=== PATIENT | male | born 1970 | race Caucasian/White ===

== ENCOUNTER → 2016-09-23 | Outpatient (CLI) | payer OTHER ==
[2016-09-23 13:44] LABS: BASO % 0.5 % (0.0-1.0); EOS # 0.4 10*3/uL (0.0-0.4); EOS % 5.5 % (1.0-4.0); HEMATOCRIT 43.7 % (42.0-52.0); HEMOGLOBIN 15.1 g/dl (14.0-18.0); LYMPH # 1.5 10*3/uL (1.3-4.4); LYMPH % 19.3 % (27.0-41.0); MEAN CELL VOLUME 89.2 fl (80.0-94.0); MEAN CORPUSCULAR HGB 30.8 pg (27.0-31.0); MEAN CORPUSCULAR HGB CONC 34.6 g/dl (33.0-37.0); MEAN PLATELET VOLUME 9.5 fl (9.6-12.3); MONO # 0.5 10*3/uL (0.1-1.0); MONO % 7.1 % (3.0-9.0); NEUT # 5.1 10*3/uL (2.3-7.9); NEUT % 67.3 % (47.0-73.0); PLATELET COUNT AUTOMATED 296 10*3/uL (130-400); WHITE BLOOD COUNT 7.6 10*3/uL (4.8-10.8)
[2016-09-23 13:55] LABS: ALBUMIN 3.8 gm/dl (3.1-4.5); ALKALINE PHOSPHATASE 103 U/L (45-117); BILIRUBIN, DIRECT 0.1 mg/dL (0.0-0.2); BILIRUBIN, TOTAL 0.5 mg/dl (0.2-1.0); BUN 14 mg/dl (7-24); CARBON DIOXIDE 26 mmol/L (21-32); CHLORIDE 103 mmol/L (98-107); EST GLOM FILT AFRICAN AMERICAN > 60 ml/min; GLUCOSE 136 mg/dL (65-99); POTASSIUM 4.2 mmol/L (3.5-5.1); SGOT/AST 21 IU/L (3-35); SGPT/ALT 46 U/L (12-78); SODIUM 141 mmol/L (136-145); TOTAL PROTEIN 7.7 gm/dL (6.4-8.2)
[2016-09-23 14:00] LABS: HEMOGLOBIN A1c 5.8 % (4.8-5.6)
== END | disposition home or self-care (01) ==
LOC: LAB 13:23
PROVIDERS: Family Medicine
DX: E11.9 Type 2 diabetes mellitus without complications (principal); I10 Essential (primary) hypertension

== ENCOUNTER → 2016-12-24 | Outpatient (CLI) | payer OTHER ==
[2016-12-24 14:43] LABS: BASO # 0.1 10*3/uL (0.0-0.1); BASO % 0.7 % (0.0-1.0); EOS # 0.5 10*3/uL (0.0-0.4); EOS % 6.4 % (1.0-4.0); HEMATOCRIT 44.2 % (42.0-52.0); HEMOGLOBIN 15.3 g/dl (14.0-18.0); LYMPH # 1.7 10*3/uL (1.3-4.4); LYMPH % 23.6 % (27.0-41.0); MEAN CELL VOLUME 90.8 fl (80.0-94.0); MEAN CORPUSCULAR HGB 31.4 pg (27.0-31.0); MEAN CORPUSCULAR HGB CONC 34.6 g/dl (33.0-37.0); MONO # 0.5 10*3/uL (0.1-1.0); MONO % 7.4 % (3.0-9.0); NEUT # 4.5 10*3/uL (2.3-7.9); NEUT % 61.5 % (47.0-73.0); PLATELET COUNT AUTOMATED 263 10*3/uL (130-400); RED BLOOD COUNT 4.87 10*6/uL (4.50-5.90); RED CELL DISTRI WIDTH 12.1 % (0-14.5); WHITE BLOOD COUNT 7.3 10*3/uL (4.8-10.8)
[2016-12-24 15:03] LABS: ALBUMIN 3.6 gm/dl (3.1-4.5); ALKALINE PHOSPHATASE 115 U/L (45-117); BILIRUBIN, DIRECT 0.1 mg/dL (0.0-0.2); BILIRUBIN, TOTAL 0.4 mg/dl (0.2-1.0); BUN 13 mg/dl (7-24); CARBON DIOXIDE 27 mmol/L (21-32); CHLORIDE 102 mmol/L (98-107); EST GLOM FILT AFRICAN AMERICAN > 60 ml/min; GLUCOSE 158 mg/dL (65-99); POTASSIUM 3.8 mmol/L (3.5-5.1); SGOT/AST 29 IU/L (3-35); SGPT/ALT 76 U/L (12-78); SODIUM 138 mmol/L (136-145); TOTAL PROTEIN 7.7 gm/dL (6.4-8.2)
[2016-12-24 15:15] LABS: HEMOGLOBIN A1c 6.5 % (4.8-5.6)
== END | disposition home or self-care (01) ==
LOC: LAB 14:09
PROVIDERS: Family Medicine
DX: I10 Essential (primary) hypertension (principal); E11.9 Type 2 diabetes mellitus without complications

== ENCOUNTER → 2020-08-17 | Outpatient (CLI) | payer OTHER | END | disposition home or self-care (01) | LOC: RAD 11:34 | PROVIDERS: ATTEND Internal Medicine | DX: M19.012 Primary osteoarthritis, left shoulder (principal); M19.011 Primary osteoarthritis, right shoulder; M25.551 Pain in right hip ==

== ENCOUNTER → 2020-09-27 | Outpatient (CLI) | payer OTHER | END | disposition home or self-care (01) | LOC: RAD 13:29 | PROVIDERS: ATTEND Internal Medicine | DX: M47.817 Spondylosis without myelopathy or radiculopathy, lumbosacral region (principal); M54.42 Lumbago with sciatica, left side ==

== ENCOUNTER 2022-03-04 15:09 | Emergency (ER) | payer OTHER ==
[~2022-03-04] VITALS: Ht 187.9 cm; Wt 147.9 kg
[2022-03-04 18:06] LABS: BASO # 0.1 10*3/uL (0.0-0.1); BASO % 0.6 % (0.0-1.0); EOS # 0.3 10*3/uL (0.0-0.4); EOS % 2.8 % (1.0-4.0); HEMATOCRIT 47.5 % (42.0-52.0); LYMPH # 1.9 10*3/uL (1.3-4.4); LYMPH % 21.4 % (27.0-41.0); MEAN CELL VOLUME 90.1 fl (80.0-94.0); MEAN CORPUSCULAR HGB 30.7 pg (27.0-31.0); MEAN CORPUSCULAR HGB CONC 34.1 g/dl (33.0-37.0); MEAN PLATELET VOLUME 9.6 fl (9.6-12.3); MONO # 0.8 10*3/uL (0.1-1.0); MONO % 8.7 % (3.0-9.0); NEUT # 5.9 10*3/uL (2.3-7.9); NEUT % 66.1 % (47.0-73.0); PLATELET COUNT AUTOMATED 291 10*3/uL (130-400); RED BLOOD COUNT 5.27 10*6/uL (4.50-5.90); RED CELL DISTRI WIDTH 13.3 % (0-14.5); WHITE BLOOD COUNT 8.9 10*3/uL (4.8-10.8)
[2022-03-04 18:21] LABS: ALKALINE PHOSPHATASE 135 U/L (45-117); BUN 18 mg/dl (7-24); CHLORIDE 101 mmol/L (98-107); CREATININE 1.07 mg/dL (0.70-1.30); LIPASE 134 U/L (73-393); POTASSIUM 3.9 mmol/L (3.5-5.1); SGOT/AST 9 IU/L (3-35); SGPT/ALT 29 U/L (12-78); SODIUM 137 mmol/L (136-145); TOTAL PROTEIN 7.5 gm/dL (6.4-8.2)
[2022-03-04] MEDS ORDERED: HYDROCHLOROTH12.5 M2 PO (18:38)
[2022-03-04] MEDS ORDERED: PREGABALIN150 MG PO (18:38)
[2022-03-04] MEDS ORDERED: NAPROXEN500 MG PO (18:38)
[2022-03-04] MEDS ORDERED: LISINOPRIL10 M1 PO (18:39)
[2022-03-04] MEDS ORDERED: DULOXETINE HCL30 MG PO (18:39)
[2022-03-04] MEDS ORDERED: MIRALAX POWDER17 G1 PO (19:40)
== END 2022-03-04 19:58 | disposition home or self-care (01) ==
LOC: ED 15:09
PROVIDERS: Physician Assistant
DX: K59.00 Constipation, unspecified (principal); Z79.899 Other long term (current) drug therapy

== ENCOUNTER 2025-01-06 15:23 | Observation (INO) | payer OTHER ==
[~2025-01-06 15:23] MED LIST: DULOXETINE HCL30 MG PO; HYDROCHLOROTH12.5 M2 PO; LISINOPRIL10 M1 PO; MIRALAX POWDER17 G1 PO; NAPROXEN500 MG PO; PERFLUTREN PROTEIN-A MICROSPHR 3 ML VIAL IV ONE; PREGABALIN150 MG PO
[2025-01-06 15:41] VITALS: BP 164/83
[2025-01-06] MEDS ORDERED: ASPIRIN ADULT L81 M2 PO (16:12)
[2025-01-06] MEDS ORDERED: ATORVASTATIN CA40 M1 PO (16:13)
[2025-01-06] MEDS ORDERED: FUROSEMIDE40 MG PO (16:13)
[2025-01-06] MEDS ORDERED: METFORMIN HYD1000 MG PO (16:16)
[2025-01-06] MEDS ORDERED: GLIMEPIRIDE4 M1 PO (16:16)
[2025-01-06] MEDS ORDERED: MONTELUKAST SOD10 MG PO (16:16)
[2025-01-06] MEDS ORDERED: DULOXETINE HCL60 MG PO (16:17)
[2025-01-06] MEDS ORDERED: POTASSIUM CHLO20 ME4 PO (16:17)
[2025-01-06] MEDS ORDERED: PIOGLITAZONE HC30 MG PO (16:17)
[2025-01-06 16:41] LABS: BASO # 0.0 10*3/uL (0.0-0.1); BASO % 0.5 % (0.0-1.0); EOS # 0.2 10*3/uL (0.0-0.4); EOS % 2.6 % (1.0-4.0); MEAN CELL VOLUME 96.4 fl (80.0-94.0); MEAN CORPUSCULAR HGB 31.1 pg (27.0-31.0); MEAN PLATELET VOLUME 9.6 fl (9.6-12.3); MONO # 0.7 10*3/uL (0.1-1.0); MONO % 7.8 % (3.0-9.0); NEUT # 6.0 10*3/uL (2.3-7.9); NEUT % 71.4 % (47.0-73.0); NUCLEATED RED BLOOD CELL 0.0 % (0.0-0.0); NUCLEATED RED BLOOD CELL 0.0 10*3/uL (0.0-0.0); PLATELET COUNT AUTOMATED 301 10*3/uL (130-400); RED CELL DISTRI WIDTH 12.6 % (0-14.5)
[2025-01-06 17:02] LABS: BUN 13 mg/dl (9-23)
[2025-01-06] MEDS ORDERED: FUROSEMIDE 40 MG/4 ML VIAL IV ONE (18:45)
[2025-01-06] MEDS ORDERED: JARDIANCE25 MG PO (19:05)
[2025-01-06] MEDS ORDERED: SODIUM CHLORIDE 0.9% 100 ML BAG IV ONE (19:45)
[2025-01-06] MEDS ORDERED: IOHEXOL 350 MG/ML 100 ML VIAL IV ONE (19:45)
[2025-01-06] MEDS ORDERED: Technetium Tc 99M Tetrofosmi 0.23 MG KIT IJ SCH (19:55)
[2025-01-06 20:30] VITALS: BP 164/80
[2025-01-07 03:30] VITALS: BP 160/86
[2025-01-07 03:59] VITALS: BP 164/80
[2025-01-07] MEDS ORDERED: Regadenoson 0.4 MG/5 ML SYR IV ONE (06:34)
[2025-01-07 06:56] VITALS: BP 133/77
[2025-01-07 09:29] VITALS: BP 122/62
[2025-01-07] MEDS ORDERED: FUROSEMIDE 40 MG/4 ML VIAL IV SCH (10:00)
[2025-01-07 12:14] VITALS: BP 129/84
== END 2025-01-07 12:12 | disposition home or self-care (01) ==
LOC: ED 15:23 → EDHOLD 18:50
PROVIDERS: Nurse Practitioner Family; ADMIT Internal Medicine; ATTEND Internal Medicine
DX: J44.9 Chronic obstructive pulmonary disease, unspecified (principal); R60.0 Localized edema; K59.00 Constipation, unspecified; Z79.899 Other long term (current) drug therapy